=== PATIENT | female | born 1970 | race Asian ===

== ENCOUNTER 2024-01-08 07:29 | Day surgery (SDC) | payer OTHER ==
[2024-01-06 10:08] VITALS: BMI 23.1
[2024-01-08] MEDS ORDERED: PROPOFOL 160 ML ONE (07:35)
[2024-01-08] MEDS ORDERED: LIDOCAINE HCL/PF 2% SDV 5ML VIAL ONE (07:35)
[2024-01-08 12:12] VITALS: BP 117/66; PULSE 63; RESP 18; TEMP 98
== END 2024-01-08 09:15 | disposition home or self-care (01) ==
LOC: FASU-ENDO 07:29
PROVIDERS: ATTEND Internal Medicine Gastroenterology
PROC: 0DJD8ZZ Inspection of Lower Intestinal Tract, Via Natural or Artificial Opening Endoscopic (ICD-10-PCS; principal; 2024-01-08 08:14)
DX: Z12.11 Encounter for screening for malignant neoplasm of colon (principal)